=== PATIENT | male | born 1975 | race Caucasian/White ===

== ENCOUNTER 2017-04-01 19:44 | Emergency (ER) | payer MEDICAID ==
[~2017-04-01] VITALS: Ht 172.7 cm; Wt 74.8 kg
[2017-04-01] MEDS ORDERED: IBUPROFEN 200 MG TABLET ONE (22:55)
[2017-04-01] MEDS ORDERED: IBUPROFEN 600 MG TABLET PO ONE (23:00)
[2017-04-01 23:10] VITALS: BP 119/83
== END 2017-04-02 01:28 | disposition home or self-care (01) ==
LOC: ER 19:44
DX: S62.001A Unspecified fracture of navicular [scaphoid] bone of right wrist, initial encounter for closed fracture (principal); S90.32XA Contusion of left foot, initial encounter; Z90.89 Acquired absence of other organs; V87.8XXA Person injured in other specified noncollision transport accidents involving motor vehicle (traffic), initial encounter; Y93.89 Activity, other specified; Y92.89 Other specified places as the place of occurrence of the external cause; Y99.9 Unspecified external cause status
CPT/HCPCS: 73110; 73130-TC; 73630-TC; A4606; Z7610